=== PATIENT | female | born 1940 | race Caucasian/White ===

== ENCOUNTER → 2016-10-18 | Outpatient (CLI) | payer OTHER, MEDICARE ==
[~2016-10-18] MED LIST: AMLO10TA9 PO; CHOL100027 PO; MULTTAB58 PO; OXYB10TA13 PO; TIMO0.2534 OPB; TYLOTC500 PO; vitamin c
--- NOTE | 2016-10-18 15:08 | MAMMOGRAPHY REPORT ---
UNILATERAL LEFT DIGITAL DIAGNOSTIC MAMMOGRAM TOMOSYNTHESIS WITH CAD: 10/18/2016 CLINICAL HISTORY: Stereotactic biopsy of left breast calcifications April 2016, which yielded roberto ign pathology. Here for short interval follow-up of other left breast calcifications. TECHNIQUE: Breast tomosynthesis in addition to standard 2D mammography was performed. Current study was also evaluated with a Computer Aided Detection (CAD) system. Left CC and MLO 2-D and tomosynth esis images and spot magnification left CC and ML views were obtained. COMPARISON: Comparison is made to exams dated: 04/19/2016 mammogram, 04/19/2016 stereotactic biopsy , 04/08/2016 mammogram, 03/21/2016 mammogram, 03/17/2015 mammogram, and 04/13/2014 aspiration - [facility]. BREAST COMPOSITION: There are scattered areas of fibroglandular density in the left breast. FINDINGS: A biopsy marker clip is noted within the left upper outer quadrant at the site of a benig n stereotactic biopsy. Spot magnification views again demonstrate a small cluster of 2 adjacent pun ctate calcifications in the left lower outer quadrant, which are stable on spot magnification views compared to the 04/08/2016 exam, and in retrospect may have been present on some of the prior exams including the 2013 and 2014 exams. These calcifications appear similar to the biopsied calcificatio ns which yielded benign pathology. Given the probable stability and given the benign morphology, th e calcifications are considered benign. The remainder of the left breast is stable compared to prior exams, without suspicious masses, calci fications, or areas of architectural distortion. IMPRESSION: ACR BI-RADS CATEGORY 2: BENIGN Small cluster of calcifications in the left lower outer quadrant is likely stable dating back to the 2014 and 2013 exams, and appears similar to the recently biopsied benign calcifications. Given the stability and given the benign morphology, the calcifications are considered benign. There is no m ammographic evidence of malignancy in the left breast. Return to annual mammogram screening schedule is recommended, due March 2017. The patient has been verbally notified of the results. Approximately 10% of breast cancers are not detected with mammography. A negative mammographic repor t should not delay biopsy if a clinically suggestive mass is present. Hetal Contreras M.D. /:10/18/2016 09:07:19 Brine Maker: Yris Isidro, [facility] letter sent: Normal 1/2 BI-RADS Code: ACR BI-RADS Category 2: Benign
== END | disposition home or self-care (01) ==
LOC: C.MAMM 08:39
PROVIDERS: ATTEND Obstetrics & Gynecology
DX: R92.1 Mammographic calcification found on diagnostic imaging of breast (principal)

== ENCOUNTER → 2017-03-24 | Outpatient (CLI) | payer OTHER, MEDICARE ==
--- NOTE | 2017-03-25 07:35 | MAMMOGRAPHY REPORT ---
BILATERAL DIGITAL SCREENING MAMMOGRAM TOMOSYNTHESIS WITH CAD: 03/24/2017 CLINICAL HISTORY: Routine screening. Patient has no complaints. TECHNIQUE: Breast tomosynthesis in addition to standard 2D mammography was performed. Current study was also evaluated with a Computer Aided Detection (CAD) system. COMPARISON: Comparison is made to exams dated: 10/18/2016 mammogram, 04/19/2016 mammogram, 04/19/2016 stereotactic biopsy, 04/08/2016 mammogram, 03/21/2016 mammogram, and 03/17/2015 mammogram - [facility]. BREAST COMPOSITION: There are scattered areas of fibroglandular density in both breasts. FINDINGS: There is a stable biopsy marker clip in the superior left breast. Stable intramammary lymp h nodes in each upper outer quadrant, and mild vascular calcification in the breasts. No suspicious mass, architectural distortion or cluster of microcalcifications is seen. IMPRESSION: ACR BI-RADS CATEGORY 1: NEGATIVE There is no mammographic evidence of malignancy. A 1 year screening mammogram is recommended. The pa tient will receive written notification of the results. Approximately 10% of breast cancers are not detected with mammography. A negative mammographic report should not delay biopsy if a clinically suggestive mass is present. Sweta Gasca M.D. ay/:03/24/2017 16:59:10 Baker Test: Yris Isidro, [facility] letter sent: Normal 1/2 BI-RADS Code: ACR BI-RADS Category 1: Negative
== END | disposition home or self-care (01) ==
LOC: C.MAMM 10:39
PROVIDERS: ATTEND Obstetrics & Gynecology
DX: Z12.31 Encounter for screening mammogram for malignant neoplasm of breast (principal)

== ENCOUNTER → 2017-05-04 | Outpatient (CLI) | payer OTHER, MEDICARE ==
[2017-05-04 13:14] LABS: BASO % 0.3 %; BASO ABS # 0.02 K/uL (0-0.2); COMPLETE YES; EOS % 3.8 %; HEMATOCRIT 40.5 % (37-47); LYMPH % 29.3 %; MEAN CELL VOLUME 95.3 fL (80-100); MEAN CORPUSCULAR HGB CONC 33.6 g/dl (32-36); MEAN PLATELET VOLUME 10.6 fL (7.4-10.4); MONO % 7.2 %; NEUT % 59.4 %; PLATELET COUNT 258 K/uL (130-400); RED BLOOD COUNT 4.25 M/uL (4.2-5.4)
[2017-05-04 13:41] LABS: ALT/SGPT 24 U/L (12-78); BLOOD UREA NITROGEN 14 mg/dl (7-18); CALCIUM 9.1 mg/dl (8.5-10.1); CARBON DIOXIDE 29 mmol/L (21-32); CHLORIDE 103 mmol/L (98-107); CHOLESTEROL 153 mg/dl (0-200); CREATININE 0.59 mg/dl (0.60-1.20); GLUCOSE 104 mg/dl (70-99); POTASSIUM 3.7 mmol/L (3.5-5.1); SODIUM 141 mmol/L (136-145); TRIGLYCERIDES 80 mg/dl (0-150); VERY LOW DENSITY LIPOPROT CALC 16 mg/dl
[2017-05-04 13:52] LABS: ALB/GLOB RATIO 1.1 (0.9-2); ALKALINE PHOSPHATASE 101 U/L (45-117); AST/SGOT 23 U/L (15-37); CHOLESTEROL/HDL RATIO 2.1; HDL CHOLESTEROL 72 mg/dl; LDL CHOLESTEROL CALCULATED 65 mg/dl
[2017-05-05 07:50] LABS: ESTIMATED AVERAGE GLUCOSE 123 mg/dl; HA1C FLAG Normal (Normal)
== END | disposition home or self-care (01) ==
LOC: C.LAB 12:26
PROVIDERS: ATTEND Internal Medicine Geriatric Medicine
DX: M85.80 Other specified disorders of bone density and structure, unspecified site (principal); R73.9 Hyperglycemia, unspecified; E78.5 Hyperlipidemia, unspecified; I10 Essential (primary) hypertension

== ENCOUNTER → 2017-10-16 | Outpatient (CLI) | payer OTHER, MEDICARE ==
--- NOTE | 2017-10-16 10:02 | DIAGNOSTIC IMAGING REPORT ---
CHEST 2 VIEWS ROUTINE HISTORY: R05 Cough COMPARISON: Chest 05/19/2012. FINDINGS: There again noted a little shoulder arthroplasties. The lungs are clear. The heart is normal in size. No pleural effusions. No pneumothorax. 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 Stable calcified nodule within the anterior mediastinum. This is considered to be benign. IMPRESSION: No significant change compared to the prior study. No acute process. Electronically signed by: Sawyer Carreon M.D. 10/16/2017 10:01 AM Dictated Date/Time: 10/16/2017 9:59 AM
== END | disposition home or self-care (01) ==
LOC: C.RADBC 09:31
PROVIDERS: ATTEND Nurse Practitioner Adult Health
DX: R05 Cough (principal)

== ENCOUNTER → 2018-01-20 | Outpatient (CLI) | payer OTHER, MEDICARE | END | disposition home or self-care (01) | LOC: C.PAPS 14:45 | PROVIDERS: ATTEND Obstetrics & Gynecology | DX: Z01.419 Encounter for gynecological examination (general) (routine) without abnormal findings (principal) ==